=== PATIENT | female | born 2000 | race Caucasian/White ===

== ENCOUNTER 2021-06-05 12:37 | Emergency (ER) | payer MEDICAID ==
[~2021-06-05] VITALS: Ht 165.1 cm; Wt 63.5 kg
[2021-06-05 13:39] LABS: Urine Bacteria FEW /hpf (None Seen); Urine Blood 3+ /uL (Negative); Urine Mucus FEW (None Seen); Urine Specific Gravity 1.012 (1.001-1.035); Urine WBC 9 /hpf (0 - 5)
[2021-06-05 15:13] LABS: Basophils # (auto) 0.1 10 ^3/uL (0-0.2); Basophils % (auto) 0.8 % (0.0-2.0); Eosinophils # (auto) 0.1 10 ^3/uL (0-0.8); Eosinophils % (auto) 1.3 % (0.0-7.0); Hematocrit 44.4 % (36.0-46.0); Hemoglobin 16.2 g/dL (12.2-16.2); Lymphocytes # (auto) 2.5 10 ^3/uL (0.4-5.4); Lymphocytes % (auto) 30.1 % (10.0-50.0); Mean Corpuscular Hemoglobin 31.2 pg (28.0-32.0); Mean Corpuscular Volume 85.3 fL (80.0-100.0); Monocytes # (auto) 0.8 10 ^3/uL (0-1.3); Monocytes % (auto) 9.8 % (0.0-12.0); Neutrophils # (auto) 4.9 10 ^3/uL (1.6-8.6); Platelet Count (auto) 361 10^3/uL (140-450); Red Blood Cells 5.21 10^6/uL (4.0-5.20); Red Cell Distribution Width 13.5 % (11.8-14.3); White Blood Cell 8.4 10^3/uL (4.4-10.8)
[2021-06-05 15:14] LABS: Mean Corpuscular Hgb Conc. 36.5 g/dL (32.0-36.0)
[2021-06-05 15:15] VITALS: BP 124/88
[2021-06-05 15:33] LABS: Albumin 4.9 g/dL (3.4-5.0); Calcium 9.9 mg/dL (8.5-10.1); Potassium 3.2 mmol/L (3.5-5.1)
[2021-06-05 15:37] LABS: BUN/Creatinine Ratio 17.8; Bilirubin, Total 1.2 mg/dL (0.2-1.0); Total Protein 9.3 g/dL (6.4-8.2)
[2021-06-05] MEDS ORDERED: POTASSIUM CHL 20 Meq TABLET PO ONE (18:00)
[2021-06-05] MEDS ORDERED: ONDANSETRON ODT 4 MG TAB PO ONE (18:00)
== END 2021-06-05 18:11 | disposition left against medical advice (07) ==
LOC: ER 12:37
DX: R10.13 Epigastric pain (principal); R11.2 Nausea with vomiting, unspecified; Z53.21 Procedure and treatment not carried out due to patient leaving prior to being seen by health care provider
CPT/HCPCS: 36415; 74176; 80053; 81001; 81025; 82150; 83690; 85025; 85049